=== PATIENT | female | born 1990 | race Caucasian/White ===

== ENCOUNTER 2016-06-28 01:40 | Emergency (ER) | payer OTHER ==
[~2016-06-28] VITALS: Ht 165.1 cm; Wt 162.2 kg
[~2016-06-28 01:40] MED LIST: ATARAX,VISTARIL25 MG PO; BENTYL20 MG PO; BISOPROLOL-HCT1 EAC2 PO; BUSPIRONE HCL10 MG PO; CEPHALEXIN500 M1 PO; LEVOTHYROXINE25 MCG PO; LISINOPRIL2.5 MG PO; METFORMIN HCL500 MG PO; NOHOMEMEDS; NUVARING VAGIN1 EACH VG; PERCOCET 5/31 TABLET PO; PROMETHAZINE HC25 M1 PO; TESSALON PERLE100 MG PO; TRINESSA1 EACH PO; ZANTAC150 MG PO; ZOFRAN ODT4 MG PO; ZYRTEC10 M2 PO
[2016-06-28 02:14] LABS: HEMATOCRIT 43.8 % (36.0-46.0); MCH 27.3 PG (29.0-34.0); MCHC 32.2 G/DL (30.0-36.0); MCV 84.7 FL (83-99); MEAN PLAT.VOLUME 9.7 uM^3 (9.5-12.4); PLATELET COUNT 368 K/uL (156-360); RBC DIS.WIDTH-CV 13.7 % (11.8-14.6); RBC DIS.WIDTH-SD 42.5 % (39-53); RED BLOOD COUNT 5.17 M/uL (3.80-5.20); WHITE BLOOD COUNT 6.1 K/uL (4.1-10.2)
[2016-06-28 02:24] LABS: CHLORIDE 103 mEq/L (99-109); SODIUM 137 mEq/L (136-147)
[2016-06-28 02:26] LABS: GLUCOSE 115 mg/dL (70-99)
[2016-06-28 02:27] LABS: ANION GAP 11 MEQ/L (2-14)
[2016-06-28 02:28] LABS: TOTAL BILIRUBIN 0.6 mg/dL (0.0-1.0)
[2016-06-28 02:30] LABS: ALKALINE PHOSPHATASE 82 IU/L (3-129)
[2016-06-28 02:31] LABS: GFR ESTIMATE (CALCULATED) > 59 mL/min/; UREA NITROGEN (BUN) 9 mg/dL (9-23)
[2016-06-28 02:33] LABS: LIPASE 17 U/L (1.0-51.0)
[2016-06-28 02:39] LABS: QUANTITATIVE HCG < 4.0 MIU/ML
[2016-06-28] MEDS ORDERED: BENTYL20 MG PO (03:25)
[2016-06-28] MEDS ORDERED: ZOFRAN8 MG PO (03:25)
[2016-06-28 03:37] VITALS: BP 131/78
== END 2016-06-28 03:41 | disposition home or self-care (01) ==
LOC: EME 01:40
DX: R11.2 Nausea with vomiting, unspecified (principal); R10.84 Generalized abdominal pain; B34.9 Viral infection, unspecified; I10 Essential (primary) hypertension; Z88.8 Allergy status to other drugs, medicaments and biological substances
CPT/HCPCS: 80053; 81003; 83690; 84702; 85027; 99281; 99284; J2405; J7030

== ENCOUNTER 2017-01-03 16:57 | Emergency (ER) | payer OTHER ==
[~2017-01-03 16:57] MED LIST changes: +ZOFRAN8 MG PO
== END 2017-01-03 17:06 | disposition left against medical advice (07) ==
LOC: EME 16:57
DX: M54.9 Dorsalgia, unspecified (principal); Z53.21 Procedure and treatment not carried out due to patient leaving prior to being seen by health care provider

== ENCOUNTER 2017-08-28 15:21 | Emergency (ER) | payer OTHER ==
[~2017-08-28] VITALS: Ht 165.1 cm; Wt 174.8 kg
[2017-08-28 17:08] LABS: HEMATOCRIT 40.8 % (36.0-46.0); HEMOGLOBIN 13.4 G/DL (11.9-15.5); MCH 27.6 PG (29.0-34.0); MCHC 32.8 G/DL (30.0-36.0); PLATELET COUNT 367 K/uL (156-360); RBC DIS.WIDTH-CV 13.7 % (11.8-14.6); RBC DIS.WIDTH-SD 41.8 % (39-53); RED BLOOD COUNT 4.86 M/uL (3.80-5.20); WHITE BLOOD COUNT 11.9 K/uL (4.1-10.2)
[2017-08-28 17:24] LABS: ALBUMIN 3.9 g/dL (3.2-4.8)
[2017-08-28 17:25] LABS: CHLORIDE 104 mEq/L (99-109); POTASSIUM 4.3 mEq/L (3.7-5.4); SODIUM 137 mEq/L (136-147)
[2017-08-28 17:27] LABS: GLUCOSE 84 mg/dL (70-99); TOTAL PROTEIN 7.4 g/dL (6.4-8.3)
[2017-08-28 17:29] LABS: TOTAL BILIRUBIN 0.4 mg/dL (0.0-1.0)
[2017-08-28 17:30] LABS: ALKALINE PHOSPHATASE 94 IU/L (3-129)
[2017-08-28 17:30] LABS: APPEARANCE CLEAR ((CLEAR)); BILIRUBIN NEGATIVE; BLOOD NEGATIVE; COLOR YELLOW ((YELLOW)); GLUCOSE (STRIP) NEGATIVE; KETONES NEGATIVE; LEUKOCYTES NEGATIVE; NITRITE NEGATIVE; PROTEIN (STRIP) NEGATIVE; SPECIFIC GRAVITY 1.021 (1.000-1.030); UCUL ADDED? NO; UROBILINOGEN 0.2 MG/DL (0.2-1.0)
[2017-08-28 17:31] LABS: CREATININE 0.7 mg/dL (0.6-1.3); GFR ESTIMATE (CALCULATED) > 59 mL/min/
[2017-08-28 17:32] LABS: AST (GOT) 19 IU/L (2-34); UREA NITROGEN (BUN) 13 mg/dL (9-23)
[2017-08-28 17:34] LABS: ALT (GPT) 24 IU/L (3-49); LIPASE 24 U/L (1.0-51.0)
[2017-08-28 17:42] LABS: QUANTITATIVE HCG < 4.0 MIU/ML
[2017-08-28 22:06] VITALS: BP 165/117
== END 2017-08-28 22:07 | disposition home or self-care (01) ==
LOC: EME 15:21
PROVIDERS: Nurse Practitioner Family
DX: N83.201 Unspecified ovarian cyst, right side (principal); N83.202 Unspecified ovarian cyst, left side; R10.11 Right upper quadrant pain; R11.0 Nausea; I10 Essential (primary) hypertension; F41.9 Anxiety disorder, unspecified; Z90.49 Acquired absence of other specified parts of digestive tract; Z88.8 Allergy status to other drugs, medicaments and biological substances
CPT/HCPCS: 74177; 76856; 80053; 81003; 83690; 84702; 85027; 99281; 99285; J1885; J2765; J7120